=== PATIENT | male | born 1950 | race Caucasian/White ===

== ENCOUNTER 2023-07-14 13:59 | Inpatient (IN) | payer OTHER ==
[2023-07-14] MEDS ORDERED: SODIUM CHLORIDE 1,000 ML IV STA (15:56)
[2023-07-14] MEDS ORDERED: ONDANSETRON 4 MG/2 ML VIAL IVPUSH ONE (15:57)
[2023-07-14] MEDS ORDERED: ONDANSETRON 4 MG/2 ML VIAL ONE (16:31)
[2023-07-14 16:36] LABS: BASO % 0.3 % (0-2.0); EOS % 2.1 % (0-4.5); HEMATOCRIT 47.6 % (35.4-49); HEMOGLOBIN 16.2 GM/dL (11.7-16.9); MCH 32.1 pg (25.7-33.7); MCHC 34.1 g/dl (32.0-35.9); MEAN CELL VOLUME 94.2 fl (80-96); MEAN PLT VOLUME 8.1 fl (7.5-11.1); NEUT % 54.6 % (42.8-82.8); PLATELET COUNT 258 10^3/uL (134-434); RBC 5.05 M/mm3 (4.00-5.60); RDW 13.2 % (11.9-15.9); WHITE BLOOD COUNT 4.6 K/mm3 (4.0-10.0)
[2023-07-14 16:43] LABS: INR 1.1 (0.83-1.09); PROTHROMBIN TIME (PATIENT) 12.8 SEC (9.7-13.0)
[2023-07-14 16:45] LABS: ACTIVATED PTT 28.9 SECONDS (25.2-36.5)
[2023-07-14 17:14] LABS: POTASSIUM 3.8 mmol/L (3.5-5.1)
[2023-07-14 17:17] LABS: ALBUMIN 4.1 g/dl (3.4-5.0); CALCIUM 10.3 mg/dL (8.5-10.1)
[2023-07-14 17:18] LABS: BLOOD UREA NITROGEN 30.8 mg/dL (7-18); MAGNESIUM 2.3 mg/dL (1.8-2.4)
[2023-07-14 17:20] LABS: CREATININE 0.8 mg/dL (0.55-1.3); PHOSPHOROUS 3.2 mg/dL (2.5-4.9)
[2023-07-14 17:22] LABS: BILIRUBIN,TOTAL 1.2 mg/dL (0.2-1); TOT PROT 7.8 g/dl (6.4-8.2)
[2023-07-14 20:22] LABS: EPI CELLS 2 /uL (0-25.1); HYALINE CASTS 1 /uL (0-3.1); PH,URINE 7.5 (5.0-8.0); URINE APPEARANCE CLEAR; URINE BACTERIA 2 /uL (0-1359); URINE BILIRUBIN 1+ (NEGATIVE); URINE COLOR DK YELLOW; URINE GLUCOSE (UA) NEGATIVE (NEGATIVE); URINE KETONE TRACE (NEGATIVE); URINE LEUK ESTERASE NEGATIVE (NEGATIVE); URINE NITRITE NEGATIVE (NEGATIVE); URINE PROTEIN 1+ (NEGATIVE); URINE RBC 20 /uL (0-23.9); URINE WBC 5 /uL (0-25.8)
[2023-07-15] MEDS: LACTATED RINGERS SOLUTION 1,000 ML IV SCH ×2 (03:42→13:56)
[2023-07-15 05:07] VITALS: BMI 27.2
[2023-07-15] MEDS ORDERED: ONDANSETRON 4 MG/2 ML VIAL IVPUSH PRN (09:00)
[2023-07-15] MEDS: levETIRAcetam 500 MG/5 ML INJECTION VIAL IVPB SCH ×2 (09:14→22:22)
[2023-07-15 10:12] LABS: BASO % 0.6 % (0-2.0); EOS % 3.1 % (0-4.5); HEMATOCRIT 43.5 % (35.4-49); HEMOGLOBIN 14.8 GM/dL (11.7-16.9); LYMPH % 23.9 % (8-40); MCH 32.1 pg (25.7-33.7); MEAN CELL VOLUME 94.4 fl (80-96); MEAN PLT VOLUME 8.1 fl (7.5-11.1); NEUT % 56.4 % (42.8-82.8); PLATELET COUNT 287 10^3/uL (134-434); RBC 4.61 M/mm3 (4.00-5.60); RDW 13.1 % (11.9-15.9); WHITE BLOOD COUNT 4.8 K/mm3 (4.0-10.0)
[2023-07-15 10:53] LABS: POTASSIUM 4.1 mmol/L (3.5-5.1)
[2023-07-15 11:01] LABS: ALBUMIN 3.5 g/dl (3.4-5.0); BLOOD UREA NITROGEN 21.8 mg/dL (7-18); PHOSPHOROUS 2.7 mg/dL (2.5-4.9)
[2023-07-15 11:03] LABS: BILIRUBIN,TOTAL 1.1 mg/dL (0.2-1)
[2023-07-15 11:04] LABS: CALCIUM 9.5 mg/dL (8.5-10.1); CREATININE 0.7 mg/dL (0.55-1.3); MAGNESIUM 2.2 mg/dL (1.8-2.4)
[2023-07-15] MEDS ORDERED: ACETAMINOPHEN 1000 MG/100 ML BAG IVPB PRN (16:10)
[2023-07-16] MEDS: LACTATED RINGERS SOLUTION 1,000 ML IV SCH (06:06)
[2023-07-16 09:35] LABS: BASO % 0.4 % (0-2.0); HEMATOCRIT 38.9 % (35.4-49); HEMOGLOBIN 13.3 GM/dL (11.7-16.9); LYMPH % 14.7 % (8-40); MCH 32.1 pg (25.7-33.7); MCHC 34.1 g/dl (32.0-35.9); MEAN PLT VOLUME 7.6 fl (7.5-11.1); MONO % 13.6 % (3.8-10.2); NEUT % 69.3 % (42.8-82.8); PLATELET COUNT 260 10^3/uL (134-434); RBC 4.14 M/mm3 (4.00-5.60); RDW 12.8 % (11.9-15.9); WHITE BLOOD COUNT 7.1 K/mm3 (4.0-10.0)
[2023-07-16] MEDS: levETIRAcetam 500 MG/5 ML INJECTION VIAL IVPB SCH ×2 (10:51→22:46)
[2023-07-16] MEDS: AMINO ACIDS 4.25%/D5W 1,000 ML IV SCH (10:54)
[2023-07-16 12:47] LABS: BLOOD UREA NITROGEN 15.9 mg/dL (7-18); CALCIUM 9.2 mg/dL (8.5-10.1); CREATININE 0.6 mg/dL (0.55-1.3); PHOSPHOROUS 3.3 mg/dL (2.5-4.9); POTASSIUM 3.7 mmol/L (3.5-5.1)
[2023-07-16] MEDS: DEXTROSE 5%-NORMAL SALINE 1,000 ML IV SCH (12:55)
[2023-07-16] MEDS: PANTOPRAZOLE SODIUM 40 MG VIAL IVPUSH SCH (13:40)
[2023-07-17] MEDS ORDERED: ACETAMINOPHEN 1000 MG/100 ML BAG IVPB PRN (08:24)
[2023-07-17 09:38] LABS: BASO % 0.2 % (0-2.0); EOS % 1.3 % (0-4.5); HEMATOCRIT 39.8 % (35.4-49); HEMOGLOBIN 13.9 GM/dL (11.7-16.9); LYMPH % 11.3 % (8-40); MCH 32.5 pg (25.7-33.7); MEAN CELL VOLUME 92.8 fl (80-96); MEAN PLT VOLUME 7.4 fl (7.5-11.1); MONO % 10.3 % (3.8-10.2); NEUT % 76.9 % (42.8-82.8); PLATELET COUNT 287 10^3/uL (134-434); RBC 4.29 M/mm3 (4.00-5.60)
[2023-07-17] MEDS: DEXTROSE 5%-NORMAL SALINE 1,000 ML IV SCH (10:43)
[2023-07-17] MEDS: AMINO ACIDS 4.25%/D5W 1,000 ML IV SCH (10:43)
[2023-07-17] MEDS: PANTOPRAZOLE SODIUM 40 MG VIAL IVPUSH SCH (10:44)
[2023-07-17] MEDS: levETIRAcetam 500 MG/5 ML INJECTION VIAL IVPB SCH ×2 (10:44→23:23)
[2023-07-17 11:13] LABS: POTASSIUM 3.6 mmol/L (3.5-5.1)
[2023-07-17 11:15] LABS: CALCIUM 8.9 mg/dL (8.5-10.1)
[2023-07-17 11:16] LABS: BLOOD UREA NITROGEN 9.4 mg/dL (7-18); MAGNESIUM 1.8 mg/dL (1.8-2.4)
[2023-07-17 11:19] LABS: CREATININE 0.5 mg/dL (0.55-1.3); PHOSPHOROUS 2.4 mg/dL (2.5-4.9)
[2023-07-17] MEDS: ENOXAPARIN NA (PORCINE) 40 MG/0.4 ML DISP.SYRIN SQ SCH (11:34)
[2023-07-18 07:35] VITALS: BP 130/63; PULSE 74; RESP 18; TEMP 98.2
[2023-07-18] MEDS: levETIRAcetam 500 MG/5 ML INJECTION VIAL IVPB SCH (10:29)
[2023-07-18] MEDS: ENOXAPARIN NA (PORCINE) 40 MG/0.4 ML DISP.SYRIN SQ SCH (10:29)
[2023-07-18] MEDS: PANTOPRAZOLE SODIUM 40 MG VIAL IVPUSH SCH (10:29)
== END 2023-07-18 14:15 | disposition home or self-care (01) | DRG 388 ==
LOC: JER 13:59 → JERBED 07-15 00:17 → J5S 07-15 05:12 → J7W 07-15 18:08
PROVIDERS: ADMIT Internal Medicine; ATTEND Internal Medicine
PROC: 0D9670Z Drainage of Stomach with Drainage Device, Via Natural or Artificial Opening (ICD-10-PCS; principal; 2023-07-15)
DX: K56.609 Unspecified intestinal obstruction, unspecified as to partial versus complete obstruction (principal); U07.1 COVID-19; E78.5 Hyperlipidemia, unspecified; G40.909 Epilepsy, unspecified, not intractable, without status epilepticus
CPT/HCPCS: 0241U-QW; 36415; 74019-TC-FY; 74177-TC; 80048; 80053; 81003; 83605; 83690; 83735; 84100; 85025; 85610; 85730; 86850; 86900; 86901; 93005; 93010; 99285-25